=== PATIENT | male | born 1950 | race Hispanic/Latino ===

== ENCOUNTER 2019-04-18 07:46 | Day surgery (SDC) | payer OTHER ==
[~2019-04-18 07:46] MED LIST: SODIUM CHLORIDE 0.9% 1000 ML 1,000 ML IV SCH
--- NOTE | 2019-04-18 08:52 | Anesthesia Day of Surgery ---
Anesthesia Day of Surgery - Day of Surgery Patient Examined: Yes Patient H&P Reviewed: Yes Patient is NPO: Yes Cardiac Clearance: Yes
--- NOTE | 2019-04-18 08:52 | Anesthesia Consultation ---
Anesthesia Consult and Med Hx Date of service: 04/18/19 - Airway Anesthetic Teeth Evaluation: Partials ROM Head & Neck: Adequate Mental/Hyoid Distance: Adequate Mallampati Class: Class III Intubation Access Assessment: Possibly Difficult - Pulmonary Exam CTA: Yes - Cardiac Exam Cardiac Exam: RRR - Pre-Operative Health Status ASA Pre-Surgery Classification: ASA3 Proposed Anesthetic Plan: MAC - Pulmonary Hx Smoking: Yes (1PPD) Hx Respiratory Symptoms: No COPD: Yes Home Oxygen Therapy: No Hx Sleep Apnea: Yes (compliant with BiPAP) - Cardiovascular System Hx Hypertension: Yes Hx Heart Attack/AMI: No (nonischemic cardiomyopathy EF 25-30%, neg ST 11/2017) Hx Percutaneous Transluminal Coronary Angioplasty (PTCA): No Hx Cardia Arrhythmia: Yes (IVCD on EKG) Hx Pacemaker: No - Central Nervous System CVA: No - Gastrointestinal Hx Gastroesophageal Reflux Disease: No - Endocrine Hx Renal Disease: No Hx Liver Disease: No Hx Insulin Dependent Diabetes: No Hx Non-Insulin Dependent Diabetes: No Hx Thyroid Disease: No - Other Systems Hx Cancer: Yes (hx rectal Ca and ang's lymphoma) - Additional Comments Anesthesia Medical History Comments: No hx anesthetic complications. No signs/symptoms HF exacerbation. SpO2 low 90s on RA in pre-procedure area.
[2019-04-18] MEDS ORDERED: PROPOFOL 200 MG/20 ML VIAL IV ONE ×2 (09:03→09:34)
--- NOTE | 2019-04-18 10:17 | Procedure Note ---
Date of procedure: 04/18/19 Pre-op diagnosis: Colon Polyp Screening/F/H/O Cancer (mother had rectal cancer) Post-op diagnosis: other (Multiple,Colon Polyps removed by Hot, Snare Polypectomy and Cold Biopsy (Ascending Colon,Sigmoid and Rectum)/No diverticular disease or Internal Hemorrhoids noted/ Normal Ileal Mucosa) Procedure: Colonoscopy with Hot Snare, Polypectomy and cold Biopsy Anesthesia: MAC Surgeon: HILDA ALBRECHT Estimated blood loss: minimal Pathology: list Specimen disposition: to lab Condition: stable Disposition: same day (Avoid aspirin and NSAID for 4 days; otherwise resume home medication. follow up in 1 to 2 weeks ([phone]))
--- NOTE | 2019-04-18 10:22 | Operative Report ---
PROCEDURE: Colonoscopy with snare polypectomy and cold biopsy. INDICATIONS: The patient is a 68-year-old male with a family history of colon cancer. The patient's mother had rectal cancer. The patient has prior history of colon polyps. Last colonoscopy was a few years back. Colonoscopy was done as part of colon polyp screening. DESCRIPTION OF PROCEDURE: Procedure was done after getting informed consent with MAC anesthesia. Initial rectal exam was unremarkable. Instrument was passed through the rectum onto the cecum, which was identified by the ileocecal valve and the appendiceal orifice. Visualization was fair to good. The terminal ileum was intubated, showed normal mucosa. Cecum showed normal mucosa. In the ascending colon, there were 2 polyps noted, one 10 mm in size and the other about 12 mm in size, both sessile that were removed by application of heat with snare polypectomy and both were retrieved. The transverse colon showed normal mucosa as did the descending colon. In the proximal sigmoid, there was a 12 mm sessile polyp noted again that was removed by cold biopsy and retrieved and the rectum showed small polyp, possibly hyperplastic, that was removed by cold biopsy. The rectum did not show any hemorrhoids on the retroverted view. There was minimal bleeding from the polypectomy sites and no complications associated with the procedure. There was no diverticular disease noted. ASSESSMENT: Colon polyp screening, family history of cancer. The patient's mother had rectal cancer. Multiple colon polyps involving the ascending colon, the sigmoid and the rectum. No diverticular disease or internal hemorrhoids noted and normal ileal mucosa. The patient will be asked to avoid aspirin and aspirin-related products for the next 4 days. Resume home medication. Follow up in the office in 1-2 weeks' time. The procedure was done in the GI lab with assistance of the GI lab team, which included Huyen PADRON and Cheyanne ash and with assistance of anesthesia. JOB# [id number] KHUSHI/MOMO
[2019-04-18 11:08] VITALS: BP 104/64
--- NOTE | 2019-04-18 11:51 | Post Anesthesia Evaluation ---
- Post Anesthesia Evaluation Patient Participated: Yes Airway Patent: Yes Stable Respiratory Function: Yes Nausea/Vomiting: No Temp > 96.8F: Yes Pain Manageable: Yes Adequeate Hydration: Yes Anesthesia Complications: No
== END 2019-04-18 07:47 | disposition home or self-care (01) ==
LOC: GIO 07:46
DX: Z12.11 Encounter for screening for malignant neoplasm of colon (principal); D12.2 Benign neoplasm of ascending colon; K62.1 Rectal polyp; J44.9 Chronic obstructive pulmonary disease, unspecified; I10 Essential (primary) hypertension; G47.30 Sleep apnea, unspecified; F17.210 Nicotine dependence, cigarettes, uncomplicated; Z85.89 Personal history of malignant neoplasm of other organs and systems; Z79.899 Other long term (current) drug therapy; Z88.8 Allergy status to other drugs, medicaments and biological substances
CPT/HCPCS: 45380; 45385; 88305; J2704; J7030